=== PATIENT | female | born 1950 | race Caucasian/White ===

== ENCOUNTER 2016-09-08 06:43 | Day surgery (SDC) | payer BC ==
[~2016-09-08 06:43] MED LIST: Buffered Lidocaine 1% SYRIN* 3 ML/SYR SYRINGE INTRADERM ONE
[2016-09-08] MEDS ORDERED: Midazolam* 1 MG/ML 2 ML VIAL (2 MG) ONE ×2 (07:54→07:58)
[2016-09-08 08:26] VITALS: BP 155/69
--- NOTE | 2016-09-08 10:08 | OP ---
OPERATIVE NOTE: DATE OF OPERATION: 09/08/16 DATE OF : 50 SURGEON: Beau Bryson M.D. PREOPERATIVE DIAGNOSIS: Cataract right eye. POSTOPERATIVE DIAGNOSIS: Cataract right eye. OPERATIVE PROCEDURE: Phacoemulsification right eye with IOL. PROCEDURE: The patient was brought to the operating room after being given 1/2% Alcaine with epinep hrine drops in the preoperative area. The eye was prepped and draped in the usual sterile fashion. Sterile drape and eyelid speculum were placed. Again, topical 1/2% Alcaine with epinephrine was gi shannon. A paracentesis incision was made at the 9 o'clock position with the No.75 blade. Clear cornea incision 2.2 x 2.2-mm was created at the 12 o'clock position starting at the anterior limbus using the 2.2-mm keratome. The anterior chamber was irrigated with 0.4 mL of 1% non-preservative intracam eral lidocaine and filled with DisCoVisc. A capsulorrhexis was completed using the cystotome and th e Utrata forceps. Hydrodissection was performed with balanced salt solution. The lens nucleus was r emoved with the Phacoemulsification handpiece without incident. Cortex was removed with the irrigat ion-aspiration handpiece. The capsular bag was re-inflated using DisCoVisc and an SN60WF 21.5 impla nt was inserted with the shooter. The irrigation-aspiration handpiece was used to remove all residu al DisCoVisc. The eye was refilled with balanced salt solution and the wound checked and found to b e watertight. Topical Maxitrol drops were given. [id number]/[facility] #: [id number]
[2016-09-08] MEDS ORDERED: acetaZOLAMIDE TAB* 250 MG ONE (12:48)
[2016-09-08] MEDS ORDERED: Lidocaine 2% EPI 1:200000 MPF* 20 ML VIAL ONE (12:48)
[2016-09-08] MEDS ORDERED: Flurbiprofen 0.03% OPTH.SOL* 2.5 ML BTL ONE (12:48)
[2016-09-08] MEDS ORDERED: Lidocaine 1% MPF* 2 ML VIAL ONE (12:48)
[2016-09-08] MEDS ORDERED: Neomycin/Polymy/Dex OPTH.SUSP* MAXITROL 0.1% 5 ML ONE (12:48)
[2016-09-08] MEDS ORDERED: Phenylephrine 2.5% OPTH.SOL* 2 ML BTL ONE (12:48)
[2016-09-08] MEDS ORDERED: Povidone Iodine 5% OPTH* 30 ML BTL ONE (12:48)
[2016-09-08] MEDS ORDERED: Cyclopentolate 1% OPTH.SOL* 2 ML BTL ONE (12:48)
[2016-09-08] MEDS ORDERED: Proparacaine 0.5% OPHTH.SOL* 15 ML BTL ONE (12:48)
== END 2016-09-08 08:28 | disposition home or self-care (01) ==
LOC: OREAST 06:43
PROVIDERS: ATTEND Specialist
DX: H25.11 Age-related nuclear cataract, right eye (principal); H43.813 Vitreous degeneration, bilateral; E78.5 Hyperlipidemia, unspecified
CPT/HCPCS: A9270-GY; J2250; V2632

== ENCOUNTER 2016-12-28 16:22 | Observation (INO) | payer BC, MEDICARE ==
[2016-12-28] MEDS ORDERED: Ciprofloxacin 400MG IVPREMIX(* 400 MG/200 ML BAG IVPB ONE (17:53)
[2016-12-28] MEDS ORDERED: NS 0.9% 1000 ML* 1,000 ML IV ONE ×2 (17:53→20:02)
--- NOTE | 2016-12-28 18:50 | RAD ---
CLINICAL HISTORY: Left flank pain COMPARISON: None TECHNIQUE: Noncontrast CT examination of the abdomen and pelvis from the lung bases through the initial tuberosities. FINDINGS: VISUALIZED LUNG BASES: The visualized lung bases are grossly clear. There is no pleural effusion. ABDOMEN AND PELVIS: Evaluation of the solid organs and vasculature is limited without intravenous contrast. The liver, spleen, pancreas and adrenal glands are grossly normal in appearance. The gallbladder is normal. The right kidney is normal in appearance without focal mass, calcification or signs of hydronephrosis. At the left upper pole collecting system there is a coarse conglomeration of stones measuring up to 9 mm in greatest dimension (coronal image 59). There is a [id number] degree of left-sided hydronephrosis and perinephric stranding. The ureter exhibits a maximum dilatation of 9 mm. At the left ureterovesical junction there is a calcification measuring 6 mm in greatest dimension (axial image 142 and coronal image 51). Evaluation of the gastrointestinal tract is limited without oral contrast. The small and large bowel are not distended.The patient's normal appendix is identified in the right lower quadrant with gas in the lumen measuring just under 7 mm in diameter. There are diverticula throughout the entire length of the colon becoming more concentrated the rectosigmoid colon where there are multiple diverticula with inspissated contrast. There is no gross retroperitoneal or mesenteric lymphadenopathy. The pelvic viscera is normal in appearance. 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 The moderately calcified abdominal aorta and iliac arteries are normal in course and diameter. Multilevel degenerative changes of the lower thoracic and lumbar spine includes loss of intervertebral disc height. There is a chronic appearing compression deformity of the T11 vertebral body.There are no sinister bone lesions. IMPRESSION: 1. There is moderate left-sided hydroureter nephrosis with a 6 mm calcification at the left ureterovesical junction. 2. 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 On a nonemergent basis more complete characterization can be made with multiphase CTA of the abdomen. 3. There are additional chronic and degenerative changes described in the body the report.
[2016-12-28 19:32] LABS: Hematocrit 37 % (35-47); Hemoglobin 12.8 g/dl (12.0-16.0); Mean Corpuscular HGB Conc 34 g/dl (31-36); Mean Corpuscular Hemoglobin 31 pg (27-31); Mean Corpuscular Volume 91 fL (80-97); Mean Platelet Volume 8 um3 (7.4-10.4); Red Blood Count 4.09 10^6/ul (4.0-5.4); Red Cell Distribution Width 14 % (10.5-15); White Blood Count 12.7 10^3/ul (3.5-10.8)
[2016-12-28 19:41] LABS: Urine Bacteria Absent (Absent); Urine Bilirubin Negative (Negative); Urine Glucose Negative (Negative); Urine Nitrite Negative (Negative)
[2016-12-28 19:46] LABS: Albumin 3.7 g/dL (3.2-5.2); BUN/Creatinine Ratio 15.1 (8-20); C Reactive Protein 291.91 mg/L (< 5.00); Calcium 9.5 mg/dL (8.6-10.3); EGFR African American 84.9 (>60); Globulin 4.2 g/dL (2-4); Potassium 3.1 mmol/L (3.5-5.0); Total Bilirubin 1.5 mg/dL (0.2-1.0); Total Protein 7.9 g/dL (6.4-8.9)
[2016-12-28 19:48] LABS: Troponin I 0.02 ng/mL (<0.04)
[2016-12-28] MEDS ORDERED: Tamsulosin CAP* 0.4 MG PO ONE (20:13)
[2016-12-28] MEDS ORDERED: Melatonin (NF) 3 MG TAB PO PRN (21:00)
[2016-12-28] MEDS ORDERED: Ondansetron INJ* 2 MG/ML VIAL IV PRN (21:00)
[2016-12-28] MEDS ORDERED: HYDROmorphone* 1 MG/ML 1 ML SYR IV PRN (21:00)
[2016-12-28] MEDS ORDERED: Acetaminophen TAB* 325 MG PO PRN (21:00)
[2016-12-28] MEDS ORDERED: oxyCODONE TAB* 5 MG TAB PO PRN (21:00)
--- NOTE | 2016-12-28 21:11 | HP ---
H&P (Free Text) History and Physical: PCP: Nadiya Moy MD Date/Time of Evaluation: 12/28/2016 2100 CC: L flank pain HPI: Mrs Randall is a 66YO female HX urolithiasis reports "not feeling well" for several days able to further clarify this to urinary frequency and malaise which accelerated last Tuesday to include subjective F/C, nausea without emesis, & decreased appetite. She states with her previous urinary stone she had almost no pain until the last hour or so before it passed into the bladder. She saw her PCP Wednesday 12/27, was diagnosed with a UTI, and had an US showing a "blockage" for which she was referred to Karen Ellison MD urology. His office obtained the referral, reviewed the reports, and called her recommending ED evaluation where a 6mm L UVJ stone and UTI was confirmed. Nadiya German MD ED contacted Dr Ellison who plans to extract the stone in the AM if it fails to pass in the interval. She does not meet SIRS/sepsis criteria and appears comfortable/ non-toxic. PMedHx urolithiasis pre-HTN Ambulatory Orders Fluticasone NASAL SPRAY 50MCG* [Flonase NASAL SPRAY 50MCG*] 2 spray BOTH NARES DAILY PRN 09/01/16 Multiple Vitamins W/ Minerals [Multivitamin Adults] 1 tab PO EVERY OTHER DAY Allergies Tetracyclines & Related Allergy (Severe, Verified 09/15/16 07:54) Rash PSurgHx OU cataract extractions tonsillectomy section SocHx: denies tobacco and recreational drug HX, rare alcohol; lives with her ; retired occupational therapist; full code status FamHx: Mother passed recently in her 80s of pneumonia post-hip FX. Father passed in his 80s of "liver problems". ROS: as above, otherwise reviewed and all were negative Constitutional: NAD, normally developed, overweight white female vitals: Vital Signs Temp 37.0 C 12/28/16 17:28 Pulse 85 12/28/16 18:30 Resp 20 12/28/16 17:28 BP 147/68 12/28/16 18:30 Pulse Ox 97 12/28/16 18:30 Intake & Output 12/27/16 12/28/16 12/28/16 23:59 11:59 23:59 Intake Total 2300 Balance 2300 Weight 72.575 kg Intake: IV Fluids 2000 IVPB 300 HEENM: atraumatic; sclera/conjunctiva: non-icteric/clear; hearing: clinically intact; oropharynx: clear, mucosa moist Neck: soft tissue: non-tender; thyroid: normal Pulmonary: clear to auscultation bilaterally, good aeration, no accessory muscle use CV: RR/RR, normal S1S2, no carotid bruit, no jugular venous distention, 2+ B DP/ PT, no edema Abdominal: soft, non-distended, non-tender, no rebound/guarding/rigidity, normoactive bowel sounds, no hepatosplenomegaly or masses, no costovertebral angle tenderness although she reports the L side feeling "different" than the R Musculoskeletal: general: grossly intact; gait: stable Integumental: normal appearance and texture of exposed skin Psychiatric orientation: AA&O to PPS affect: calm mood: cooperative eye contact: good content: reliable responses: timely insight: good Testing: Lab Results 12/28/16 12/28/16 12/28/16 Range/Units 19:10 19:10 19:10 WBC 12.7 H (3.5-10.8) 10^3/ul RBC 4.09 (4.0-5.4) 10^6/ul Hgb 12.8 (12.0-16.0) g/dl Hct 37 (35-47) % MCV 91 (80-97) fL MCH 31 (27-31) pg MCHC 34 (31-36) g/dl RDW 14 (10.5-15) % Plt Count 283 (150-450) 10^3/ul MPV 8 (7.4-10.4) um3 Neut % (Auto) 81.2 (38-83) % Lymph % (Auto) 10.2 L (25-47) % [place] % (Auto) 6.8 (1-9) % Eos % (Auto) 1.3 (0-6) % Baso % (Auto) 0.5 (0-2) % Absolute Neuts (auto) 10.3 H (1.5-7.7) 10^3/ul Absolute Lymphs (auto) 1.3 (1.0-4.8) 10^3/ul Absolute Monos (auto) 0.9 H (0-0.8) 10^3/ul Absolute Eos (auto) 0.2 (0-0.6) 10^3/ul Absolute Basos (auto) 0.1 (0-0.2) 10^3/ul Absolute Nucleated RBC 0 10^3/ul Nucleated RBC % 0 INR (Anticoag Therapy) 1.06 (0.89-1.11) Sodium (133-145) mmol/L Potassium (3.5-5.0) mmol/L Chloride (101-111) mmol/L Carbon Dioxide (22-32) mmol/L Anion Gap (2-11) mmol/L BUN (6-24) mg/dL Creatinine (0.51-0.95) mg/dL Est GFR ( Amer) (>60) Est GFR (Non-Af Amer) (>60) BUN/Creatinine Ratio (8-20) Glucose (70-100) mg/dL Lactic Acid (0.5-2.0) mmol/L Calcium (8.6-10.3) mg/dL Total Bilirubin (0.2-1.0) mg/dL AST (13-39) U/L ALT (7-52) U/L Alkaline Phosphatase (34-104) U/L Troponin I (<0.04) ng/mL C-Reactive Protein (< 5.00) mg/L Total Protein (6.4-8.9) g/dL Albumin (3.2-5.2) g/dL Globulin (2-4) g/dL Albumin/Globulin Ratio (1-3) Urine Color [place] Urine Appearance Cloudy Urine pH 5.0 (5-9) Ur Specific [place] 1.014 (1.010-1.030) Urine Protein 1+(30 mg/dl) H (Negative) Urine Ketones Negative (Negative) Urine Blood 1+ H (Negative) Urine Nitrate Negative (Negative) Urine Bilirubin Negative (Negative) Urine Urobilinogen Positive H (Negative) Ur Leukocyte Esterase 3+ H (Negative) Urine WBC (Auto) 3+(>20/hpf) H (Absent) Urine RBC (Auto) 3+(>10/hpf) H (Absent) Ur Squamous Epith Cells Present H (Absent) Amorphous Crystals Present H (Absent) Urine Bacteria Absent (Absent) Urine Glucose Negative (Negative) 12/28/16 12/28/16 Range/Units 19:10 19:10 WBC (3.5-10.8) 10^3/ul RBC (4.0-5.4) 10^6/ul Hgb (12.0-16.0) g/dl Hct (35-47) % MCV (80-97) fL MCH (27-31) pg MCHC (31-36) g/dl RDW (10.5-15) % Plt Count (150-450) 10^3/ul MPV (7.4-10.4) um3 Neut % (Auto) (38-83) % Lymph % (Auto) (25-47) % [place] % (Auto) (1-9) % Eos % (Auto) (0-6) % Baso % (Auto) (0-2) % Absolute Neuts (auto) (1.5-7.7) 10^3/ul Absolute Lymphs (auto) (1.0-4.8) 10^3/ul Absolute Monos (auto) (0-0.8) 10^3/ul Absolute Eos (auto) (0-0.6) 10^3/ul Absolute Basos (auto) (0-0.2) 10^3/ul Absolute Nucleated RBC 10^3/ul Nucleated RBC % INR (Anticoag Therapy) (0.89-1.11) Sodium 133 (133-145) mmol/L Potassium 3.1 L (3.5-5.0) mmol/L Chloride 96 L (101-111) mmol/L Carbon Dioxide 29 (22-32) mmol/L Anion Gap 8 (2-11) mmol/L BUN 13 (6-24) mg/dL Creatinine 0.86 (0.51-0.95) mg/dL Est GFR ( Amer) 84.9 (>60) Est GFR (Non-Af Amer) 66.0 (>60) BUN/Creatinine Ratio 15.1 (8-20) Glucose 105 H (70-100) mg/dL Lactic Acid 0.8 (0.5-2.0) mmol/L Calcium 9.5 (8.6-10.3) mg/dL Total Bilirubin 1.50 H (0.2-1.0) mg/dL AST 39 (13-39) U/L ALT 37 (7-52) U/L Alkaline Phosphatase 140 H (34-104) U/L Troponin I 0.02 (<0.04) ng/mL C-Reactive Protein 291.91 H (< 5.00) mg/L Total Protein 7.9 (6.4-8.9) g/dL Albumin 3.7 (3.2-5.2) g/dL Globulin 4.2 H (2-4) g/dL Albumin/Globulin Ratio 0.9 L (1-3) Urine Color Urine Appearance Urine pH (5-9) Ur Specific [place] (1.010-1.030) Urine Protein (Negative) Urine Ketones (Negative) Urine Blood (Negative) Urine Nitrate (Negative) Urine Bilirubin (Negative) Urine Urobilinogen (Negative) Ur Leukocyte Esterase (Negative) Urine WBC (Auto) (Absent) Urine RBC (Auto) (Absent) Ur Squamous Epith Cells (Absent) Amorphous Crystals (Absent) Urine Bacteria (Absent) Urine Glucose (Negative) CT abd/pel WO, personally reviewed: IMPRESSION: 1. There is moderate left-sided hydroureter nephrosis with a 6 mm calcification at the left ureterovesical junction. 2. 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 On a nonemergent basis more complete characterization can be made with multiphase CTA of the abdomen. 3. There are additional chronic and degenerative changes described in the body the report. Impression: 66F presenting with 6mm obstructing L UVJ stone & UTI DIAGNOSIS & PLAN Primary 6mm obstructing L UVJ stone & UTI : IVFs : IV ABX : Karen Ellison MD urology consulted; will evaluate in AM : strain urine for stone & send for analysis if passed : tamsulosin 0.5mg PO x1 given in ED : cipro, ceftriaxone, & gentamicin given in ED : pain control : anti-emetics : pain control Secondary pre-HTN : periodic monitoring Admission Rational: observation for obstructing L UVJ stone requiring IVFs & IV ABX, possible surgical intervention DVTp: SCDs Code Status: full HCP:
--- NOTE | 2016-12-28 23:00 | ED ---
I, Everardo,Kourtney, scribed for Reji German MD on 12/28/16 at 1751 . GI/ HPI - HPI Summary HPI Summary: This 66 y/o female presents to ED for elevated WBC after UTI diagnosis yesterday. UA and ultrasound were done yesterday, which indicated UTI and possible inflammation of left kidney. Pt is currently on Cipro treatment with pending appointment 2 days later, but was directed to ED today when pt is noted with elevated WBC from blood draw. Positive fever, chills, nausea, and inconsistent dysuria. Pt is also IBP to control fever, and is noted afebrile at triage today with temperature of 98.6 F. PMHx is significant for kidney stones. - History of Current Complaint Chief Complaint: EDUrogenitalProblems Time Seen by Provider: 12/28/16 17:43 Stated Complaint: POSSIBLE KIDNEY INFECTION Hx Obtained From: Patient, Medical Records Onset/Duration: Started Days Ago, Atraumatic, Still Present Timing: Constant Pain Intensity: 1 Location of Pain: None Associated Signs and Symptoms: Positive: Nausea, Fever - currently resolved, Dysuria - inconsistent. Negative: Vomiting - Allergy/Home Medications Allergies/Adverse Reactions: Allergies Allergy/AdvReac Type Severity Reaction Status Date / Time Tetracyclines & Related Allergy Severe Rash Verified 09/15/16 07:54 PMH/Surg Hx/FS Hx/Imm Hx Cardiovascular History: Reports: Hx Hypertension - borderline - no meds History: Reports: Hx Kidney Stones - in past - none recent Musculoskeletal History: Reports: Hx Arthritis Sensory History: Reports: Hx Cataracts - bilat, Hx Contacts or Glasses Denies: Hx Hearing Aid Opthamlomology History: Reports: Hx Cataracts - bilat, Hx Contacts or Glasses - Surgical History Surgery Procedure, Year, and Place: tonsillectomy at 4 years old. x1 Hx Anesthesia Reactions: Yes - as a child had a hard time waking up from anesthesia - Immunization History Date of Tetanus Vaccine: unknown Date of Influenza Vaccine: UTD Infectious Disease History: No Infectious Disease History: Denies: Traveled Outside the [place] in Last 30 Days - Family History Known Family History: Positive: Diabetes - type II - Social History Alcohol Use: Occasionally Substance Use Type: Reports: None Smoking Status (MU): Never Smoked Tobacco Review of Systems Positive: Fever - currently resolved, Chills Positive: Nausea. Negative: Vomiting Positive: dysuria - inconsistent All Other Systems Reviewed And Are Negative: Yes Physical Exam Triage Information Reviewed: Yes Vital Signs On Initial Exam: Initial Vitals Temp Pulse Resp BP Pulse Ox 98.6 F 99 20 158/78 97 12/28/16 16:25 12/28/16 16:25 12/28/16 16:25 12/28/16 16:25 12/28/16 16:25 Vital Signs Reviewed: Yes Appearance: Positive: Well-Appearing, No Pain Distress Skin: Positive: Warm, Skin Color Reflects Adequate Perfusion, Dry Head/Face: Positive: Normal Head/Face Inspection Eyes: Positive: EOMI, MELLISSA Neck: Positive: Supple, Nontender Respiratory/Lung Sounds: Positive: Breath Sounds Present Cardiovascular: Positive: RRR, Pulses are Symmetrical in both Upper and Lower Extremities Abdomen Description: Positive: Nontender, Soft. Negative: CVA Tenderness (R), CVA Tenderness (L) Musculoskeletal: Positive: Strength/ROM Intact Neurological: Positive: Sensory/Motor Intact, Alert, Oriented to Person Place, Time Psychiatric: Positive: Affect/Mood Appropriate AVPU Assessment: Alert - Emre Coma Scale Coma Scale Total: 15 Diagnostics - Vital Signs Vital Signs Temp Pulse Resp BP Pulse Ox 12/28/16 17:28 98.6 F 99 20 158/78 97 12/28/16 16:25 98.6 F 99 20 158/78 97 - Laboratory Lab Results: Lab Results 12/28/16 12/28/16 12/28/16 Range/Units 19:10 19:10 19:10 WBC 12.7 H (3.5-10.8) 10^3/ul RBC 4.09 (4.0-5.4) 10^6/ul Hgb 12.8 (12.0-16.0) g/dl Hct 37 (35-47) % MCV 91 (80-97) fL MCH 31 (27-31) pg MCHC 34 (31-36) g/dl RDW 14 (10.5-15) % Plt Count 283 (150-450) 10^3/ul MPV 8 (7.4-10.4) um3 Neut % (Auto) 81.2 (38-83) % Lymph % (Auto) 10.2 L (25-47) % [place] % (Auto) 6.8 (1-9) % Eos % (Auto) 1.3 (0-6) % Baso % (Auto) 0.5 (0-2) % Absolute Neuts (auto) 10.3 H (1.5-7.7) 10^3/ul Absolute Lymphs (auto) 1.3 (1.0-4.8) 10^3/ul Absolute Monos (auto) 0.9 H (0-0.8) 10^3/ul Absolute Eos (auto) 0.2 (0-0.6) 10^3/ul Absolute Basos (auto) 0.1 (0-0.2) 10^3/ul Absolute Nucleated RBC 0 10^3/ul Nucleated RBC % 0 INR (Anticoag Therapy) 1.06 (0.89-1.11) Sodium (133-145) mmol/L Potassium (3.5-5.0) mmol/L Chloride (101-111) mmol/L Carbon Dioxide (22-32) mmol/L Anion Gap (2-11) mmol/L BUN (6-24) mg/dL Creatinine (0.51-0.95) mg/dL Est GFR ( Amer) (>60) Est GFR (Non-Af Amer) (>60) BUN/Creatinine Ratio (8-20) Glucose (70-100) mg/dL Lactic Acid (0.5-2.0) mmol/L Calcium (8.6-10.3) mg/dL Total Bilirubin (0.2-1.0) mg/dL AST (13-39) U/L ALT (7-52) U/L Alkaline Phosphatase (34-104) U/L Troponin I (<0.04) ng/mL C-Reactive Protein (< 5.00) mg/L Total Protein (6.4-8.9) g/dL Albumin (3.2-5.2) g/dL Globulin (2-4) g/dL Albumin/Globulin Ratio (1-3) Urine Color [place] Urine Appearance Cloudy Urine pH 5.0 (5-9) Ur Specific [place] 1.014 (1.010-1.030) Urine Protein 1+(30 mg/dl) H (Negative) Urine Ketones Negative (Negative) Urine Blood 1+ H (Negative) Urine Nitrate Negative (Negative) Urine Bilirubin Negative (Negative) Urine Urobilinogen Positive H (Negative) Ur Leukocyte Esterase 3+ H (Negative) Urine WBC (Auto) 3+(>20/hpf) H (Absent) Urine RBC (Auto) 3+(>10/hpf) H (Absent) Ur Squamous Epith Cells Present H (Absent) Amorphous Crystals Present H (Absent) Urine Bacteria Absent (Absent) Urine Glucose Negative (Negative) 12/28/16 12/28/16 Range/Units 19:10 19:10 WBC (3.5-10.8) 10^3/ul RBC (4.0-5.4) 10^6/ul Hgb (12.0-16.0) g/dl Hct (35-47) % MCV (80-97) fL MCH (27-31) pg MCHC (31-36) g/dl RDW (10.5-15) % Plt Count (150-450) 10^3/ul MPV (7.4-10.4) um3 Neut % (Auto) (38-83) % Lymph % (Auto) (25-47) % [place] % (Auto) (1-9) % Eos % (Auto) (0-6) % Baso % (Auto) (0-2) % Absolute Neuts (auto) (1.5-7.7) 10^3/ul Absolute Lymphs (auto) (1.0-4.8) 10^3/ul Absolute Monos (auto) (0-0.8) 10^3/ul Absolute Eos (auto) (0-0.6) 10^3/ul Absolute Basos (auto) (0-0.2) 10^3/ul Absolute Nucleated RBC 10^3/ul Nucleated RBC % INR (Anticoag Therapy) (0.89-1.11) Sodium 133 (133-145) mmol/L Potassium 3.1 L (3.5-5.0) mmol/L Chloride 96 L (101-111) mmol/L Carbon Dioxide 29 (22-32) mmol/L Anion Gap 8 (2-11) mmol/L BUN 13 (6-24) mg/dL Creatinine 0.86 (0.51-0.95) mg/dL Est GFR ( Amer) 84.9 (>60) Est GFR (Non-Af Amer) 66.0 (>60) BUN/Creatinine Ratio 15.1 (8-20) Glucose 105 H (70-100) mg/dL Lactic Acid 0.8 (0.5-2.0) mmol/L Calcium 9.5 (8.6-10.3) mg/dL Total Bilirubin 1.50 H (0.2-1.0) mg/dL AST 39 (13-39) U/L ALT 37 (7-52) U/L Alkaline Phosphatase 140 H (34-104) U/L Troponin I 0.02 (<0.04) ng/mL C-Reactive Protein 291.91 H (< 5.00) mg/L Total Protein 7.9 (6.4-8.9) g/dL Albumin 3.7 (3.2-5.2) g/dL Globulin 4.2 H (2-4) g/dL Albumin/Globulin Ratio 0.9 L (1-3) Urine Color Urine Appearance Urine pH (5-9) Ur Specific [place] (1.010-1.030) Urine Protein (Negative) Urine Ketones (Negative) Urine Blood (Negative) Urine Nitrate (Negative) Urine Bilirubin (Negative) Urine Urobilinogen (Negative) Ur Leukocyte Esterase (Negative) Urine WBC (Auto) (Absent) Urine RBC (Auto) (Absent) Ur Squamous Epith Cells (Absent) Amorphous Crystals (Absent) Urine Bacteria (Absent) Urine Glucose (Negative) Result Diagrams: 12/28/16 19:10 12/28/16 19:10 Lab Statement: Any lab studies that have been ordered have been reviewed, and results considered in the medical decision making process. - CT Ab/P CT Interpretation: Positive (See Comments) - 1. There is moderate left-sided hydroureter nephrosis with a 6 mm calcification at the left ureterovesical junction. 2. 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 On a nonemergent basis more complete characterization can be made with multiphase CTA of the abdomen. 3. There are additional chronic and degenerative changes described in the body the report. CT Interpretation Completed By: Radiologist Re-Evaluation - Re-Evaluation First Eval Re-Evaluation Time: 20:09 Comment: MD in room to update pt on blood work and CT Ab/P, and discuss plan of care involving admission. GIGU Course/Dx - Course Course Of Treatment: Ms. Randall was found to have a 6mm left UVJ stone with moderate hydro and a grossly infected U/A. She has received IV NS and antibiotics and is being admitted to the hospitalists. - Diagnoses Provider Diagnoses: Kidney stone on left side, UTI (urinary tract infection) - Physician Notifications Discussed Care Of Patient With: Nhan Ellison Time Discussed With Above Provider: 20:00 Instructed by Provider To: Admit As Inpatient Discharge - Discharge Plan Condition: Stable Disposition: ADMITTED TO [facility] The documentation as recorded by the Everardo drummond Soohyun accurately reflects the service I personally performed and the decisions made by me, Reji German MD.
[2016-12-28] MEDS: NS 0.9% 1000 ML* 1,000 ML IV SCH (23:26)
[2016-12-29] MEDS: Docusate CAP* 100 MG PO SCH ×2 (00:17→08:22)
[2016-12-29] MEDS ORDERED: Omeprazole CAP* 20 MG PO SCH (06:00)
[2016-12-29 06:08] LABS: Hematocrit 33 % (35-47); Hemoglobin 11.5 g/dl (12.0-16.0); Mean Corpuscular HGB Conc 35 g/dl (31-36); Mean Corpuscular Hemoglobin 32 pg (27-31); Mean Corpuscular Volume 91 fL (80-97); Mean Platelet Volume 7 um3 (7.4-10.4); Red Cell Distribution Width 14 % (10.5-15); White Blood Count 9.1 10^3/ul (3.5-10.8)
[2016-12-29 06:25] LABS: BUN/Creatinine Ratio 10.3 (8-20); Calcium 8.3 mg/dL (8.6-10.3); EGFR African American 111.3 (>60); EGFR Non-African American 86.6 (>60); Potassium 2.9 mmol/L (3.5-5.0)
[2016-12-29] MEDS: NS 0.9% 1000 ML* 1,000 ML IV SCH (07:35)
[2016-12-29] MEDS ORDERED: Potassium Chlor TAB* 10 MEQ TAB.ER PO ONE (08:33)
[2016-12-29] MEDS ORDERED: Iohexol 180 (CONTRAST) 10 ML SDV IV ONE (08:39)
[2016-12-29] MEDS ORDERED: Magnesium Sulfate 2 GM IV* 2 GM/50 ML BAG IVPB ONE (08:43)
[2016-12-29] MEDS ORDERED: KCL 10 MEQ/50 ML IVPREMIX* 10 MEQ/50 ML BAG IV SCH (09:00)
[2016-12-29 09:04] LABS: Magnesium 1.9 mg/dL (1.9-2.7)
[2016-12-29] MEDS ORDERED: Propofol* 10 MG/ML 20 ML BTL IV PUSH ONE (09:43)
[2016-12-29] MEDS ORDERED: fentaNYL* 50 MCG/ML 2 ML VIAL (100 MCG VIAL) ONE (09:43)
[2016-12-29] MEDS ORDERED: Lidocaine 2% PF * 5 ML VIAL ONE (09:43)
[2016-12-29] MEDS ORDERED: Ondansetron INJ* 2 MG/ML VIAL ONE (10:01)
[2016-12-29] MEDS ORDERED: Phenylephrine IV* 40 MCG/ML 10 ML SYRINGE ONE (10:04)
[2016-12-29] MEDS ORDERED: PROCHLORPERAZINE INJ 5 MG/ML 2 ML VIAL IV PRN (10:09)
[2016-12-29] MEDS ORDERED: Ketorolac INJ* 30 MG/ML 1 ML VIAL IV PRN (10:09)
[2016-12-29] MEDS ORDERED: oxyCODONE/Acetamin 5/325 MG* TAB PO PRN (10:09)
[2016-12-29] MEDS ORDERED: fentaNYL* 50 MCG/ML 2 ML VIAL (100 MCG VIAL) IV PRN (10:09)
[2016-12-29] MEDS ORDERED: HYDROcodone/ACETAMIN 5-325 MG* 1 TAB PO PRN (10:09)
[2016-12-29 11:04] VITALS: BP 131/70
--- NOTE | 2016-12-29 11:35 | RAD ---
INDICATION: Left ureteroscopy COMPARISON: None FINDINGS: 7 seconds of fluoroscopy were provided for the urology department. Fluoroscopic spot imaging of the abdomen were obtained for operative control and show left ureteroscopy followed by left ureteral stent placement in expected position . CPT II Codes: 6045F (fluoro time doc)
--- NOTE | 2016-12-29 12:48 | RAD ---
INDICATION: Status post left ureteral stent placement COMPARISON: CT abdomen pelvis demonstrating left-sided hydronephrosis in the presence of a 6 mm distal left ureteral stone TECHNIQUE: A single view of the abdomen was obtained. FINDINGS: There is been interval placement of a left ureteral stent. There is no focal density in the left hemipelvis that would correspond to the stone identified on the previous CT examination. IMPRESSION: INTERVAL PLACEMENT OF AN ANATOMICALLY ALIGNED LEFT URETERAL STENT.
[2016-12-29] MEDS ORDERED: cefTRIAXone VIAL(*) 1,000 MG in NS 0.9% 50 ML* 50 ML IVPB SCH (21:00)
--- NOTE | 2016-12-30 04:24 | OP ---
CC: Clint Nuñez MD; Quyen Moy MD * DATE OF OPERATION: 12/29/16 - ROOM #332 DATE OF : [birth year] - AGE: 66 years, female. SURGEON: Nhan Ellison MD ANESTHESIOLOGIST: Dr. Porras. ANESTHESIA: General. PRE-OP DIAGNOSES: 1. Left hydronephrosis. 2. Calculus, left ureter. 3. Calculus, left kidney. POST-OP DIAGNOSES: 1. Left ureteral calculi (2 calculi). 2. Left hydronephrosis. OPERATIVE PROCEDURE: Cystoscopy, left retrograde pyelogram, left ureteroscopy, stone extraction, and left stent insertion. COMPLICATIONS: None. STENT USED: 6-Bolivian stent left ureter. POSTOPERATIVE CONDITION: Stable. OPERATIVE FINDINGS: 1. Cystocele. 2. A few small soft bladder calculi (probably related to cystocele). 3. Two calculi impacted in left distal ureter with left hydronephrosis and hydroureter. INDICATIONS: Ida Randall is a 66-year-old lady who was initially evaluated at the [facility] and noted to have a temperature of 101 and a urinary tract infection associated with left hydronephrosis. She was subsequently evaluated in the emergency room and noted to have a 6-mm calculus in the left distal ureter with left hydronephrosis. I discussed the options with her including trying conservative management with intravenous antibiotics and alpha-blockers because of the persistence of what appears to be a urinary tract infection. She is now being brought in for left ureteroscopy, possible laser and stent insertion. DESCRIPTION OF PROCEDURE: After induction of general anesthesia, the patient was placed in dorsal lithotomy position. Sequential compression devices were in place and functioning. Initial evaluation had revealed a moderate degree of prolapse. The bladder was examined. There were a few small soft bladder calculi noted probably related to the prolapse and incomplete emptying of the bladder. These were irrigated out. There was edema and inflammation noted surrounding the left orifice. The remainder of the bladder was unremarkable. A guidewire was introduced into the left ureter. Resistance was encountered just inside the ureterovesical junction and the wire was advanced proximally. Retrograde pyelogram revealed left hydronephrosis and proximal hydroureter. A 6 -Bolivian semirigid ureteroscope was introduced and advanced under direct visit. A few centimeters above the ureterovesical junction, there were two calculi noted to be impacted with surrounding edema and inflammation. These were carefully disengaged and using a three- pronged grasper, these were both successfully retrieved. The ureteroscope was advanced proximally into the mid and proximal ureter and eventually into the renal pelvis. No additional calculi were noted. Because of the considerable degree of edema and inflammation where the calculi had been impacted, I elected to proceed with stent insertion. A 6-Bolivian stent was introduced in position under fluoroscopy with good proximal and distal positioning obtained. The bladder was emptied. The patient tolerated the procedure satisfactorily and was transferred back to recovery area in stable condition. [id number]/[facility] #: [id number] [facility]
--- NOTE | 2016-12-30 07:23 | DS ---
CC: Dr. Quyen Moy; Dr. Ellison * DISCHARGE SUMMARY: DATE OF ADMISSION: 12/28/16 DATE OF DISCHARGE: 12/29/16 PRIMARY CARE PROVIDER: Dr. Quyen Moy. CONSULTING UROLOGIST: Dr. Ellison. DISCHARGING PROVIDER: PEDRO Ibrahim SUPERVISING PHYSICIAN: Dr. Yanick Morales * (DICTATED BY PEDRO IBRAHIM) PRIMARY DISCHARGE DIAGNOSES: 1. Left hydronephrosis with 6-mm stone at left ureterovesical junction with associated urinary tract infection, status post retrograde pyelogram with left ureteral stent placement and resolution of associated hydro. 2. Hypokalemia - repleted. DISCHARGE MEDICATIONS: 1. Ciprofloxacin 500 mg p.o. b.i.d. 2. Fluticasone nasal spray, 2 sprays in both nostrils once daily. 3. Multivitamin 1 tablet p.o. daily. Medication changes: None. HOSPITAL IMAGING: CT of the abdomen and pelvis demonstrated moderate left- sided hydroureter and nephrosis with 6-mm calcification at the left UVJ. 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 HOSPITAL COURSE: This is a 66-year-old female, who is really otherwise healthy who was referred to the emergency department by Urology for urinary tract infection with associated left hydronephrosis. The patient had been treated for urinary tract infection by her primary care provider earlier in the week. Outpatient imaging demonstrated left-sided hydro and she was referred to Urology , who suggested evaluation in the emergency department. The patient had been started on ciprofloxacin as an outpatient. CT of the abdomen and pelvis in the emergency department demonstrated moderate left hydronephrosis with hydroureter and urinalysis was suggestive of a urinary tract infection. Initial labs demonstrated mild leukocytosis with white blood cell count of 12,700. Chemistry is remarkable for mild hypokalemia. CRP was significantly elevated to nearly 300. The patient was aggressively treated with antibiotics in the emergency department and the patient underwent retrograde pyelogram with left ureteral stent placement by Dr. Ellison the morning following her admission. Repeat labs demonstrated resolution of her hydronephrosis. She remained afebrile and normotensive throughout her hospital stay. Dr. Ellison retrieved culture results from outpatient [facility] from her prior culture, which grew pansensitive E. coli and he suggested continuing the Cipro that she had been previously started on. The patient was largely asymptomatic during her hospital stay reporting very little abdominal or flank pain and just mild nausea. DISPOSITION AND FOLLOWUP PLAN: The patient is being discharged to home with instructions to take a total of 10 days of ciprofloxacin. The patient requires followup with Dr. Ellison for possible lithotripsy as stone does not pass on its own and stent retrieval. The patient should also follow up with her primary care provider regarding this hospital admission. PEDRO IBRAHIM [id number]/[facility] #: [id number] JEFF[facility]
== END 2016-12-29 12:17 | disposition home or self-care (01) ==
LOC: ED 16:22 → SSU 20:54
PROVIDERS: ADMIT Hospitalist; ATTEND Internal Medicine
DX: N13.6 Pyonephrosis (principal); E87.6 Hypokalemia; I72.8 Aneurysm of other specified arteries; R10.30 Lower abdominal pain, unspecified
CPT/HCPCS: 36415; 74000; 74176; 74420; 80048; 80053; 81003; 81015; 82365; 83605; 83735; 84484; 85025; 85610; 86140; 87040; 87086; 88300; 96365; 99283; A9270-GY; C1876; G0378; J0696; J0744; J1580; J2405; J2704; J3010